=== PATIENT | male | born 1970 | race Caucasian/White ===

== ENCOUNTER → 2019-10-23 | Outpatient (CLI) | payer OTHER ==
--- NOTE | 2019-10-23 12:11 | KCIC ---
MRI Lumbar Spine without contrast History: Lumbar spine pain Technique: Multiplanar, multi sequential noncontrast MR imaging was performed of the lumbar spine. Comparison: None Findings: There is assumption of 5 lumbar type vertebral bodies. Most inferior formed although rudimentary intervertebral disc space will be considered L5-S1 for this report. Conus terminates at what is considered T12-L1. Vertebral body stature is mostly preserved other than small superior Schmorl's nodes at what is considered L1 and L2. There is mild degenerative disc disease at what is considered L4-5, also [id number] degenerative disc disease at T11-12, mild disc desiccation L3-4. There is posterior annular tear L4-5. L1-L2: This level was not included on the axial images. Neural foramina and spinal canal are adequate. L2-L3: Spinal canal and neural foramina are adequate. L3-L4: There is mild prominence of posterior epidural fat and buckling of the ligamentum flavum. Spinal canal and neural foramina are adequate. L4-L5: There is posterior protrusion greatest centrally about 2 to 3 mm AP indenting the ventral thecal sac without spinal stenosis, near the descending L5 nerve roots without significant displacement. There is mild prominence of posterior epidural fat. There is minimal posterior narrowing of the left neural foramen, right neural foramen adequate. L5-S1: Spinal canal and neural foramina are adequate. Impression: 1. 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 There is shallow posterior protrusion at L4-5, near the descending L5 nerve roots without significant displacement or spinal stenosis. There is mild degenerative disc disease at L4-5 and to a somewhat greater degree at T11-12. There is no significant lumbar neural foramina compromise. Electronically signed by: Kingsley Tejada MD (10/23/2019 12:07 PM) [id number]
== END | disposition home or self-care (01) ==
LOC: KCIC MRI 10:02
DX: M51.35 Other intervertebral disc degeneration, thoracolumbar region (principal); M51.26 Other intervertebral disc displacement, lumbar region; M48.061 Spinal stenosis, lumbar region without neurogenic claudication
CPT/HCPCS: 72148